=== PATIENT | male | born 1980 | race Caucasian/White ===

== ENCOUNTER 2024-05-26 12:57 | Observation (INO) | payer OTHER ==
[2024-05-26] MEDS ORDERED: Midazolam HCl 2 mg/2 ml Vial ONE ×2 (13:46→15:00)
[2024-05-26] MEDS ORDERED: fentaNYL 50 mcg/mL 1 mL Vial ONE ×2 (13:46→14:54)
[2024-05-26] MEDS ORDERED: Heparin 10,000 UNITS/ 10 ML VIAL ONE (13:46)
[2024-05-26] MEDS ORDERED: Nitroglycerin 50 MG/250 ML BOT 0 ML ONE (13:47)
[2024-05-26 14:03] LABS: Troponin I Less than 0.010 ng/mL (< 0.028)
[2024-05-26] MEDS ORDERED: Iopamidol 370 76% 100 ML VIAL ONE (14:50)
[2024-05-26] MEDS ORDERED: Sodium Chloride 0.9% 200 ML IV PRN (15:12)
[2024-05-26] MEDS ORDERED: Nitroglycerin 0.4 MG TAB (25 Tab Bottle) SL PRN (15:12)
[2024-05-26] MEDS: Sodium Chloride 0.9% 1,000 ML IV SCH (16:23)
[2024-05-26] MEDS: Pantoprazole DR 40 MG TAB PO SCH (16:23)
[2024-05-26 16:32] VITALS: BMI 27.2
[2024-05-26] MEDS ORDERED: Acetaminophen 650 MG Suppository PR PRN (17:41)
[2024-05-26] MEDS ORDERED: Senokot S 8.6-50 MG TAB PO PRN (17:41)
[2024-05-26] MEDS ORDERED: Acetaminophen 325 MG TAB PO PRN (17:41)
[2024-05-26] MEDS ORDERED: Calcium Carbonate 500 MG ChewTAB PO PRN (17:41)
[2024-05-26] MEDS ORDERED: Ondansetron PF 4 MG/2 ML Vial IVP PRN (17:41)
[2024-05-26] MEDS ORDERED: Lorazepam 0.5 MG TAB PO PRN (17:50)
[2024-05-26] MEDS ORDERED: Electrolyte Replacement Protocol 1 EACH FS SCH (18:00)
[2024-05-26] MEDS: Ketorolac Tromethamine 30 MG (1 mL) VIAL IVP SCH (18:40)
[2024-05-26] MEDS: Thiamine HCl 200 MG/2 ML VIAL SLOW IVP SCH (18:40)
[2024-05-26] MEDS: Ondansetron ODT 4 MG TAB PO PRN (18:53)
[2024-05-26] MEDS: Folic Acid 1 MG TAB PO SCH (20:03)
[2024-05-26] MEDS: Multivit, Therapeutic 1 TAB PO SCH (20:03)
[2024-05-26] MEDS: Atorvastatin Calcium 40 MG TAB PO SCH (20:03)
[2024-05-26] MEDS: Lorazepam 0.5 MG TAB PO PRN (20:03)
[2024-05-27] MEDS: Ketorolac Tromethamine 30 MG (1 mL) VIAL IVP PRN (07:29)
[2024-05-27 09:13] LABS: #Basophils 0.05 10x3/uL (0.0-0.2); %Basophils 0.6 % (0.0-1.0); %Eosinophils 4.5 % (0.0-10.0); %Lymphocytes 13.3 % (21.0-51.0); %Neutrophils 72.1 % (42.0-75.0); Hematocrit 41.5 % (42.0-52.0); Hemoglobin 14.5 g/dL (14.0-18.0); Mean Corpuscular HGB CONC 34.9 g/dL (32.0-36.0); Mean Corpuscular Hemoglobin 33.2 pg (27.0-31.0); Mean Platelet Volume 9.2 fL (7.4-10.4); Platelet Count 246 10x3/uL (130-400); Red Blood Cell (RBC) Count 4.37 mill/uL (4.70-6.10)
[2024-05-27] MEDS: Pantoprazole DR 40 MG TAB PO SCH (09:21)
[2024-05-27] MEDS: Escitalopram Oxalate 10 mg Tablet PO SCH (09:21)
[2024-05-27] MEDS: Aspirin 81 mg Enteric Coated Tablet PO SCH (09:21)
[2024-05-27] MEDS: Enoxaparin 40 MG (0.4 mL) SYRINGE SC SCH (09:21)
[2024-05-27 09:32] LABS: Anion Gap 11 mmol/L (10-20); BUN (Urea Nitrogen) 10 mg/dL (8.9-20.6); Calc. Creatinine Clearance 97 mL/min (70-130); Calcium 7.9 mg/dL (7.8-10.44); Carbon Dioxide 20 mmol/L (22-29); Cardiac Risk 5.2 (Less than 4.5); Chloride 109 mmol/L (98-107); Cholesterol 196 mg/dl (< 200 Desired); Estimated GFR 77; Glucose 108 mg/dL (70-105); HDL Cholesterol 38 mg/dL (>60 Neg Risk); LDL Cholesterol, Calculated 115 mg/dL; Potassium 4.1 mmol/L (3.5-5.1); Sodium 136 mmol/L (136-145); Triglycerides 215 mg/dL (Less than 150)
[2024-05-27 11:47] VITALS: BP 114/58; TEMP 98.2
[2024-05-27] MEDS ORDERED: dilTIAZem ER 60 MG CAP PO SCH (21:00)
[2024-05-29] MEDS ORDERED: Thiamine 100 MG TAB PO SCH (09:00)
== END 2024-05-27 12:25 | disposition home or self-care (01) ==
LOC: ERS 12:57 → OBS 16:10
PROVIDERS: ADMIT Internal Medicine; ATTEND Internal Medicine
PROC: 4A023N7 Measurement of Cardiac Sampling and Pressure, Left Heart, Percutaneous Approach (ICD-10-PCS; principal; 2024-05-26)
DX: R07.89 Other chest pain (principal); I10 Essential (primary) hypertension; I48.0 Paroxysmal atrial fibrillation; E78.5 Hyperlipidemia, unspecified; F41.9 Anxiety disorder, unspecified; F17.290 Nicotine dependence, other tobacco product, uncomplicated; Z79.82 Long term (current) use of aspirin; Z79.01 Long term (current) use of anticoagulants; Z79.1 Long term (current) use of non-steroidal anti-inflammatories (NSAID); Z79.899 Other long term (current) drug therapy
CPT/HCPCS: 36415; 36416; 80048; 80061; 85025; 85347; 85379; 93005; 93458; 96365; 99152; 99153; C1769; C1887; C1894; G0378; J1644; J1650; J1885; J2250; J3010; J3411; J7030; Q0162; Q9967